=== PATIENT | male | born 1950 | race Caucasian/White ===

== ENCOUNTER 2017-11-24 06:34 | Inpatient (IN) | payer MEDICARE, OTHER, SELFPAY ==
[2017-11-24] VITALS (14 sets, daily range): BP systolic 111–203; BP diastolic 56–150; PULSE 69–80; RESP 10–18; TEMP 36.1–36.7; O2SAT 93–97; BMI 32.3
--- NOTE | 2017-11-24 | DI.RAD.S_ITS ---
PROCEDURE: XR KNEE RT 1TO2V INDICATIONS: POSTOPERATIVE RIGHT KNEE TECHNIQUE: 2 views of the knee were acquired. COMPARISON: None. FINDINGS: Bones: Postoperative changes are present related to a total right knee arthroplasty. The metallic prosthetic components appear to be properly seated. No periprostatic fracture or lucency is evident. Please note that the lateral view is suboptimally positioned. Soft tissues: Areas of soft tissue edema, fluid, and air are seen within the subcutaneous tissues of the right knee. Surgical drainage catheter is present. No unexpected radiopaque foreign bodies are evident. IMPRESSION: Expected postoperative changes related to a total right knee arthroplasty. Dictated by: Kodi Stein M.D. on 11/24/2017 at 10:56 Approved by: Kodi Stein M.D. on 11/24/2017 at 10:57
[2017-11-24] MEDS: LACTATED RINGERS 1,000 ML 42 ML IV ×2 (07:15→12:07)
[2017-11-24] MEDS: VANCOMYCIN 1 GM/200 ML 200 MG IV (07:20)
[2017-11-24] MEDS: SODIUM CHLORIDE 0.9% IV ×2 (08:15→18:11)
[2017-11-24] MEDS: CEFAZOLIN IV ×2 (08:15→18:11)
--- NOTE | 2017-11-24 08:15 | SUR.OPER ---
Supine on padded OR bed. Pillow under head, arms secured on padded armboards <90 degree abduction. Safety belt across torso. Non-operative leg secured with tape over blanket over lower leg. Operative leg secured in DeMayo positioner. Foam padded brace at thigh of operative leg.
[2017-11-24] MEDS: TRANEXAMIC ACID 2,000 MG in SODIUM CHLORIDE 0.9% 100 ML 600 ML IV (09:02)
[2017-11-24] MEDS: BUPIVACAINE LIPOSOME 266 MG/20 ML VIAL SUBCUT (09:09)
[2017-11-24] MEDS: BUPIVACAINE 0.25% W/ EPI 50 ML VIAL INJ (09:10)
--- NOTE | 2017-11-24 11:13 | PM.OP.1 ---
Operative Date/Time/Diagnoses - Date of procedure: 11/24/17 Time of procedure: 08:13 Pre-op diagnosis: right knee oa Post-op diagnosis: same Procedure & Clinicians Procedure: Right total knee Same procedure as scheduled: Yes Indications: The patient has had progressively worsening right knee pain with radiographic changes consistent with arthritis. Non-operative management has failed and the patient has requested total knee replacement. The risks, benefits and alternatives to surgery were discussed with the patient prior to proceeding. Risks discussed included, but were not limited to, failure to relieve pain, stiffness, infection, nerve damage, deep venous thrombosis, pulmonary embolism, stroke, coma, heart attack, permanent paralysis and , as well as the potential need for eventual revision of the prosthetic. Surgeon: Keysha Kan [employer] Consultant: Mattie Kathleen Anesthesia Type: General and Spinal Operative Notes Findings: Severe right knee osteoarthritis, good balance Closure Type: primary Specimen(s): none sent Implants & Drains: Right knee Kan and Nephpricila Morgan BCS2 size 8 femur size 8 tibia 38 oval patella +10 poly Applied: drain(s) and implant(s) Estimated Blood Loss (mL): 200 Blood products transfused: none Tourniquet time (min): 100 Procedure in detail: The patient was seen in the pre-operative area, where the patient identified the right knee as the operative site and this was marked with my initials. The patient received pre-operative antibiotics, and was taken to the operating room and placed on the operative table in the supine position. After satisfactory anesthesia, a aircraft time clerk out was performed. The right leg was encircled with a tourniquet about the proximal thigh, and the leg was prepared from the toes to the tourniquet with ChloroPrep in the usual fashion and draped through sterile drapes. The leg was elevated and exsanguinated with Eschmark bandage and the tourniquet inflated to [250] mmHg pressure. The knee was approached through an approximately 18 cm incision centered over the patella and carried into the knee through a medial parapatellar arthrotomy. The posterior capsule was injected with part of a mixture of 60 ml 0.25% Marcaine mixed with 20 ml Exparel and 4 mg of morphine for post operative pain control. The remainder of this mixture was injected into the capsule and subcutaneous tissues during cement curing. The patella was then cut to accommodate the patellar prosthetic. There was no need for a lateral release. The anterior osteophytes and soft tissues were removed. The rotational landmarks of Maverick's line and the transepicondylar axis were marked on the femur with electrocautery, and intramedullary guide holes for the femur and tibia were created. The distal femoral cut was made in 5 degrees of valgus using the intramedullary guide at the +2 cut setting. The proximal tibial cut was then made using the extramedullary guide, taking 10 mm of bone off the less involved side. The extension gap was checked and the rotation of the femoral component confirmed with the gap balancing system. The anterior, posterior and chamfer cuts were then made. The posterior osteophytes and soft tissues were then removed. The posterior capsule was injected with part of a mixture of 60 ml 0.25% Marcaine mixed with 20 ml Exparel and 4 mg of morphine for post operative pain control. The remainder of this mixture was injected into the capsule and subcutaneous tissues during cement curing. The tibia was prepared with the rotation set by an extra medullary guide. Trial tibial and femoral components were then placed and the knee placed through a range of motion. Range of motion was [0-130], with good stability throughout the range. The trials were then removed, and the femoral hole plugged with a bone plug. The bone was prepared with pulsatile lavage, and dried with a sponge. Cement was applied and the final prosthetics placed. Excess cement was removed during and after cement curing. After confirming there was no extruded cement posteriorly, the final tibial insert was placed. The knee was copiously irrigated and the tourniquet deflated. Hemostasis was obtained with the Aquamantys system. A drain was placed and brought out superolaterally. The capsule was closed with interrupted # 2 Black braided nylon. The subcutaneous layer was closed with a barbed suture and the skin with a running 3-0 V-Lock suture and SteriStrips. An Aquacel Ag dressing was applied and the patient was taken to recovery having tolerated the procedure well. Complications: none Condition: stable Disposition: observation Plan for aftercare: The patient will be maintained on a standard total knee replacement protocol with weight bearing as tolerated. The patient will receive aspirin and sequential compression devices for DVT prophylaxis. The patient will be discharged home when safe for the home environment.
--- NOTE | 2017-11-24 12:22 | PC.NURSE ---
Pt to room at 1150 alert, oriented, denies pain but reports some tingling. PPP+ scds' on. Denies nausea. Oriented to room and call light.
[2017-11-24] MEDS: LACTATED RINGERS 1,000 ML 125 ML IV ×2 (13:34→21:56)
[2017-11-24] MEDS: ACETAMINOPHEN 325 MG TABLET 650 MG PO ×2 (13:37→18:09)
--- NOTE | 2017-11-24 17:36 | PT.IIE ---
Physical Therapy Inpatient M1 PT/OT-IP Prior Functional Status Start: 11/24/17 17:13 Freq: NEEDED Status: Active Protocol: Document 11/24/17 17:14 EA (Rec: 11/24/17 17:35 EA [id number]) Medical Review Prior Functional Status Medical History Reviewed Yes Communication Alert, O x 3 Mobility and Gait Indep in all functional transfers and mobility; uses standard cane for outdoor mobility w/ no history of fall in the past six months. Activities of Daily Living and IADL's Independent Social History Household Members spouse Living Arrangements House Number of Floors (Floors) One Floor Number of Stairs To Enter/Railing? 4 steps to get in w/ Left handrail to go up Home Environment High Toilet Home Equipment Front Wheel Walker Straight Cane Employment Status Unknown Additional Social History Comment Daughter to come home for few days once d/c. M2 PT-IP Current Condition Start: 11/24/17 17:13 Freq: NEEDED Status: Active Protocol: Document 11/24/17 17:14 EA (Rec: 11/24/17 17:35 EA [id number]) Physical Therapy Current Condition Current Condition Evaluation Date 11/24/17 Treatment Diagnosis R TKR Onset Date Post Operative Precautions Other Precautions Pre-caution when turning to the bad side while walking. Weight Bearing Status Weight Bearing Status Weight Bear as Tolerated M3 PT-IP Subjective Start: 11/24/17 17:13 Freq: NEEDED Status: Active Protocol: Document 11/24/17 17:14 EA (Rec: 11/24/17 17:35 EA [id number]) Subjective Physical Therapy Visit Type Type Initial Evaluation Visit Start Time 16:35 Visit Stop Time 17:10 Total Visit Minutes 35 Physical Therapy Visit Comments Patient/Caregiver Goals Wants to be indep in all transfers and mobility upon discharge. Therapy Pain Assessment Pain When Pain Assessed At Rest Pain Present Pain Present Pain Reported Location Right Foot Intensity 2 Description Pressure Pain Management Techniques Apply Cold M4 PT-IP Mobility and Gait Start: 11/24/17 17:13 Freq: NEEDED Status: Active Protocol: Document 11/24/17 17:14 EA (Rec: 11/24/17 17:35 EA [id number]) PT-Bed Mobility Assessment Rolling Level of Assist Standby Assistance Supine to Sit Supine to Sit Standby Assistance Sit to Supine Sit to Supine Standby Assistance Scooting Scooting to Edge of Bed Standby Assistance PT-Transfer Assessment Sit to and From Stand Sit to and from Stand Standby Assistance Equipment Transfer Assistive Device Gait Belt Front Wheeled Walker Transfers Transfer Destination Chair Transfer Technique stepping transfers Transfer Ability Level of Assist Standby Assistance Gait Assessment Gait Gait Assistance Required: Standby Assistance Able to Maintain Weight Bearing Status Yes During Gait Assistive Devices Assistive Device Gait Belt Front Wheeled Walker Gait Deviations General Gait Pattern Antalgic Factors Limiting Gait Function Factors Limiting Gait Function Decreased Strength Pain Stair Climbing Assessment Comments Stair Climbing Comments N/A at this time PT-Balance Assessment Sitting Balance and Reactions Static Sitting Balance Ability Normal Dynamic Sitting Balance Ability Good Standing Balance and Reactions Static Standing Balance Ability Good Dynamic Standing Balance Ability Fair M5 PT-IP Objective Assessments Start: 11/24/17 17:13 Freq: NEEDED Status: Active Protocol: Document 11/24/17 17:14 EA (Rec: 11/24/17 17:35 EA [id number]) Orientation Orientation/Cognition Level of Alertness Alert Orientation Name Date Year Place Gross Range of Motion Upper Extremity ROM Assessment Within Functional Limits Lower Extremity ROM Assessment Within Functional Limits Impairments Right knee not proper tested due to pre-cautions but with at least 0-90 deg flexion Strength Upper Extremity Strength Assessment Within Functional Limits Lower Extremity Strength Assessment Within Functional Limits Hip hip flexors 4-/5 with pain Knee 3/5: not properly assessed Coordination Assessment Gross Coordination Gross Coordination WNL Sensation Assessment Sensation Gross Sensation WNL Light Touch Intact Proprioception (Position) Intact M6 PT-IP Treatment Start: 11/24/17 17:13 Freq: NEEDED Status: Active Protocol: Document 11/24/17 17:14 EA (Rec: 11/24/17 17:35 EA [id number]) Physical Therapy Treatment Exercises Exercises Ankle Pumps Quad Sets Straight Leg Raises Short Arc Quads Passive Knee Extension Hang Seated Knee Flexion/Extension Education Post-Op Education Precautions Weight Bearing Status Post-Op Packet Safety M7 PT-IP Assessment and Plan Start: 11/24/17 17:13 Freq: NEEDED Status: Active Protocol: Document 11/24/17 17:14 EA (Rec: 11/24/17 17:35 EA [id number]) PT Summary Assessment and Plan Potential Rehabilitation Potential Excellent Status of Condition at Evaluation Stable Summary Impairments Pain Strength Balance Transfers Gait Activity Tolerance Goals Bed Mobility Goal Independent Transfer Goal Independent Gait Goal Independent Gait Distance 50 ft w/ FWW on level surfaces Frequency of Treatment Frequency Of Treatment Twice a Day Treatment Plan Physical Therapy Treatment Plan Bed Mobility Training Transfer Training Gait Training Therapeutic Exercise Discharge Planning Recommendations To Nursing Amount of Assist Needed 1 Person Assist Discharge Recommendations PT Discharge Recommendations Home with Assistance Outpatient PT
[2017-11-24] MEDS: DOCUSATE 100 MG CAPSULE PO (20:26)
[2017-11-24] MEDS: ASPIRIN EC 81 MG TABLET PO (20:26)
[2017-11-24] MEDS: SENNOSIDES 8.6 MG TABLET 17.2 MG PO (20:26)
--- NOTE | 2017-11-24 22:33 | PC.NURSE ---
Pt A&Ox3, essential tremor present at baseline. Harshil wrap CDI, hemavac compressed, draining sanguineous drainage. Denies nausea, +Bt's. Pt having troubles with urination. Bladder scanned pt with >992 cc present in urine. In and Out cath placed approx at 2044 with 1050 cc of clear juventino urine. Pt tolerated well and expressed immediate pressure relief. States pain tolerable in his R knee, denies need for PRN pain meds, stating I only have pain when I move.
[2017-11-25] MEDS: ACETAMINOPHEN 325 MG TABLET 650 MG PO ×4 (01:27→18:30)
[2017-11-25 05:22] LABS: Hematocrit 42.6 % (41-53); Hemoglobin 14.8 g/dL (13.5-17.5)
[2017-11-25] MEDS: SODIUM CHLORIDE 0.9% IV (05:35)
[2017-11-25] MEDS: CEFAZOLIN IV (05:35)
[2017-11-25] MEDS: PANTOPRAZOLE 20 MG TABLET PO (05:36)
[2017-11-25 05:47] VITALS: BP 141/82; PULSE 70; RESP 16; TEMP 36.6; O2SAT 93
[2017-11-25] MEDS: OXYCODONE IR 10 MG TABLET PO ×5 (06:43→20:30)
[2017-11-25 08:18] VITALS: BP 148/85; PULSE 70; RESP 13; TEMP 36.7; O2SAT 95
[2017-11-25] MEDS: ASPIRIN EC 81 MG TABLET PO ×2 (09:16→20:30)
[2017-11-25] MEDS: DOCUSATE 100 MG CAPSULE PO ×2 (09:16→20:31)
--- NOTE | 2017-11-25 10:55 | P.PN_ITS ---
Subjective Interval history: POD #1 status post right total knee arthroplasty with Dr. Kan. His pain is well controlled. He has not ambulated with PT this morning. He had a in his family this past week. His care plan has changed as his daughter will no longer be able to stay with him until . His will be able to care for him tomorrow afternoon. Patient is urinating on his own. Date Patient Seen: 11/25/17 Time Patient Seen: 10:45 Exam Vital Signs (past 8 hours): Vital Signs - 8 hr 3 11/25/17 05:47 11/25/17 08:18 Temperature 97.8 F 98.1 F Pulse Rate 70 70 Respiratory Rate 16 13 Blood Pressure 141/82 H 148/85 H Pulse Oximetry 93 95 Temperature 98.1 F Temperature 97.8 F Pulse Rate 70 Pulse Rate 70 Respiratory Rate 13 Respiratory Rate 16 Blood Pressure 148/85 Blood Pressure 141/82 Pulse Oximetry 95 Pulse Oximetry 93 Narrative Exam Narrative: Patient lying in bed in no acute distress. Alert and oriented x3. Dressing on right knee is CDI. Harshil wrap in place. Drain in place. He is able to actively dorsiflex and plantar flex. Sensation intact to light touch throughout bilateral lower extremities. Objective Labs Result Diagrams: 11/25/17 04:58 Labs: Laboratory Results - last 24 hr 11/25/17 04:58 Hgb 14.8 Hct 42.6 Assessment & Plan Post-op (1) S/P total knee arthroplasty: Current Visit: Yes Status: Acute Postoperative Procedures Operation Date: 11/24/17 07:45 Actual Procedures Side Surgeon p Total Knee Arthroplasty Right Keysha Kan MD Postop day 1 s/p right total knee arthroplasty with Dr. Kan. Continue current pain control. ASA for VTE prophylaxis. Will ambulate with PT today. He will discuss with plan for discharge. Possible DC home tomorrow as long as mobilizing safely and pain is well controlled. He will discuss with about care tomorrow after her work and daughter will be able to stay with him all day. Postoperative day: 1 Time Spent With Patient less than 15 minutes Quality VTE Deep Vein Thrombosis/Pulmonary Embolism Present on Admission: No
--- NOTE | 2017-11-25 12:21 | PT.IPTN ---
Current Diagnoses Unilateral primary osteoarthritis, right knee (11/24/17) Presence of unspecified artificial knee joint (11/24/17) Surgery Performed Operation Date: 11/24/17 07:45 Actual Procedures p Total Knee Arthroplasty(Right) - Keysha Kan MD Physical Therapy Treatment Note M3 PT-IP Subjective Start: 11/24/17 17:13 Freq: NEEDED Status: Active Protocol: Document 11/25/17 12:11 AB (Rec: 11/25/17 12:19 AB [id number]) Subjective Physical Therapy Visit Type Type Treatment Note Visit Start Time 09:22 Visit Stop Time 10:55 Total Visit Minutes 33 Number of CONTINUOUS MINING MACHINE COAL MINER Visits 0 Physical Therapy Visit Comments Patient Comments pt agreeable to do therapy Therapy Pain Assessment Pain When Pain Assessed During Mobility Pain Present Pain Present Pain Reported Location Right Knee Intensity 7 Scale Used Numeric (1 - 10) Pain Management Techniques Apply Cold Timing of Activity with Medications M4 PT-IP Mobility and Gait Start: 11/24/17 17:13 Freq: NEEDED Status: Active Protocol: Document 11/25/17 12:11 AB (Rec: 11/25/17 12:19 AB [id number]) PT-Bed Mobility Assessment Supine to Sit Supine to Sit Standby Assistance PT-Transfer Assessment Sit to and From Stand Sit to and from Stand Minimal Assistance Equipment Transfer Assistive Device Gait Belt Front Wheeled Walker Gait Assessment Gait Gait Assistance Required: Contact Guard Assist Distance (Feet) (feet) 120 Able to Maintain Weight Bearing Status Yes During Gait Assistive Devices Assistive Device Gait Belt Front Wheeled Walker Orthotic/Prosthetic Devices or Brace: No Gait Deviations General Gait Pattern Antalgic Factors Limiting Gait Function Factors Limiting Gait Function Decreased Activity Tolerance Decreased Strength Limited Range of Motion Pain Poor Balance
[2017-11-25 13:31] VITALS: BP 138/87; PULSE 72; RESP 13; TEMP 36.9; O2SAT 97
[2017-11-25 15:40] VITALS: BP 146/90; PULSE 77; RESP 18; TEMP 37.2; O2SAT 96
[2017-11-25] MEDS: hydrOXYzine pamoate 25 MG CAPSULE PO (17:12)
--- NOTE | 2017-11-25 17:17 | PT.IPTN ---
Current Diagnoses Unilateral primary osteoarthritis, right knee (11/24/17) Presence of unspecified artificial knee joint (11/24/17) Surgery Performed Operation Date: 11/24/17 07:45 Actual Procedures p Total Knee Arthroplasty(Right) - Keysha Kan MD Physical Therapy Treatment Note M3 PT-IP Subjective Start: 11/24/17 17:13 Freq: NEEDED Status: Active Protocol: Document 11/25/17 17:16 AB (Rec: 11/25/17 17:17 AB [id number]) Subjective Physical Therapy Visit Type Type Patient Refusal Notes checked on pt and pt refused therapy stated that he has 8/ 10 and does not think it's a good idea to push it. pt just had his pain meds ~ 2 hours hour. unable to checked back on pt due to schedule conflict . will f/u tomorrow.
[2017-11-25] MEDS: SENNOSIDES 8.6 MG TABLET 17.2 MG PO (20:31)
[2017-11-25 20:49] VITALS: BP 137/95; PULSE 87; RESP 18; TEMP 37.2; O2SAT 92
[2017-11-25 23:35] VITALS: BP 143/95; PULSE 77; RESP 16; TEMP 37.4; O2SAT 96
[2017-11-26] MEDS: OXYCODONE IR 10 MG TABLET PO ×3 (00:03→10:17)
[2017-11-26] MEDS: ACETAMINOPHEN 325 MG TABLET 650 MG PO ×3 (00:03→12:11)
[2017-11-26] MEDS: hydrOXYzine pamoate 25 MG CAPSULE PO (00:04)
[2017-11-26 05:19] VITALS: BP 140/81; PULSE 74; RESP 16; TEMP 37.1; O2SAT 93
[2017-11-26] MEDS: PANTOPRAZOLE 20 MG TABLET PO (06:26)
[2017-11-26 07:12] VITALS: BP 141/91; PULSE 74; RESP 14; TEMP 37.3; O2SAT 94
[2017-11-26] MEDS: DOCUSATE 100 MG CAPSULE PO (08:05)
[2017-11-26] MEDS: ASPIRIN EC 81 MG TABLET PO (08:05)
--- NOTE | 2017-11-26 10:06 | CM.DANOTE ---
DCP: case received, EMR reviewed, spoke with PT and ANTHONY Fall and met with pt. DCP: template: completed with info available at this time. Pt is a 67 year old male who admitted 11/24 for a planned R TKA. Surgeon: Dr. Kan Payer: FRANTZ/Tasha. Pt notes that he felt good yesterday but lots of pain after PT session. Noted Bilateral UE tremors: per ANTHONY Fall this is baseline. She also says pt needed Vistaril last night and is a bit groggy/foggy this morning. Pt confirms his plan for home with outpt PT. Has his FWW in prep for this surgery. His 2 daughters are now in town and will be staying at his home to assist him. His , who works, will also be assisting. Pt indicated he thought if he did not go today it would cost me alot of money. Explained his [facility] coverage. He has not yet seen ortho team today and PT will be working again with him. Will follow prn. P: home when stable, family, outpt PT
[2017-11-26] MEDS: NAPROXEN 250 MG TABLET PO (10:49)
--- NOTE | 2017-11-26 10:52 | PC.NURSE ---
PT RATING RIGHT KNEE PAIN 8/10, THROBBING. GIVEN 10MG OXYCODONE AND 250MG NAPROSYN. REMOVED BANDAR WRAP AND APPLIED FRESH ICE PACKS.
--- NOTE | 2017-11-26 11:10 | CM.DPNOTE ---
Medicare Message SW provided Medicare rights and pt acknowledged understanding and and gave verbal signature on the Medicare Message due to pain issues on 11/26/17 at 1042. CAR Harding
[2017-11-26] MEDS: KETOROLAC 15 MG/ML VIAL IM (12:10)
--- NOTE | 2017-11-26 13:06 | PT.IPTN ---
Current Diagnoses Unilateral primary osteoarthritis, right knee (11/24/17) Presence of unspecified artificial knee joint (11/24/17) Surgery Performed Operation Date: 11/24/17 07:45 Actual Procedures p Total Knee Arthroplasty(Right) - Keysha Kan MD Physical Therapy Treatment Note M2 PT-IP Current Condition Start: 11/24/17 17:13 Freq: NEEDED Status: Active Protocol: Document 11/24/17 17:14 EA (Rec: 11/24/17 17:35 EA [id number]) Physical Therapy Current Condition Current Condition Evaluation Date 11/24/17 Treatment Diagnosis R TKR Onset Date Post Operative Precautions Other Precautions Pre-caution when turning to the bad side while walking. Weight Bearing Status Weight Bearing Status Weight Bear as Tolerated M3 PT-IP Subjective Start: 11/24/17 17:13 Freq: NEEDED Status: Active Protocol: Document 11/26/17 10:04 CLB (Rec: 11/26/17 13:06 CLB [id number]) Subjective Physical Therapy Visit Type Type Patient Refusal Notes Pt refused, stating pain was 9 /10 and was asking RN for pain meds. M4 PT-IP Mobility and Gait Start: 11/24/17 17:13 Freq: NEEDED Status: Active Protocol: Document 11/25/17 12:11 AB (Rec: 11/25/17 12:19 AB [id number]) PT-Bed Mobility Assessment Supine to Sit Supine to Sit Standby Assistance PT-Transfer Assessment Sit to and From Stand Sit to and from Stand Minimal Assistance Equipment Transfer Assistive Device Gait Belt Front Wheeled Walker Gait Assessment Gait Gait Assistance Required: Contact Guard Assist Distance (Feet) (feet) 120 Able to Maintain Weight Bearing Status Yes During Gait Assistive Devices Assistive Device Gait Belt Front Wheeled Walker Orthotic/Prosthetic Devices or Brace: No Gait Deviations General Gait Pattern Antalgic Factors Limiting Gait Function Factors Limiting Gait Function Decreased Activity Tolerance Decreased Strength Limited Range of Motion Pain Poor Balance M5 PT-IP Objective Assessments Start: 11/24/17 17:13 Freq: NEEDED Status: Active Protocol: Document 11/24/17 17:14 EA (Rec: 11/24/17 17:35 EA [id number]) Orientation Orientation/Cognition Level of Alertness Alert Orientation Name Date Year Place Gross Range of Motion Upper Extremity ROM Assessment Within Functional Limits Lower Extremity ROM Assessment Within Functional Limits Impairments Right knee not proper tested due to pre-cautions but with at least 0-90 deg flexion Strength Upper Extremity Strength Assessment Within Functional Limits Lower Extremity Strength Assessment Within Functional Limits Hip hip flexors 4-/5 with pain Knee 3/5: not properly assessed Coordination Assessment Gross Coordination Gross Coordination WNL Sensation Assessment Sensation Gross Sensation WNL Light Touch Intact Proprioception (Position) Intact M6 PT-IP Treatment Start: 11/24/17 17:13 Freq: NEEDED Status: Active Protocol: Document 11/25/17 12:11 AB (Rec: 11/25/17 12:19 AB [id number]) Physical Therapy Treatment Exercises Exercises Quad Sets Education Post-Op Education Weight Bearing Status Safety M7 PT-IP Assessment and Plan Start: 11/24/17 17:13 Freq: NEEDED Status: Active Protocol: Document 11/25/17 12:11 AB (Rec: 11/25/17 12:19 AB [id number]) PT Summary Assessment and Plan Potential Rehabilitation Potential Good Summary Impairments Pain ROM Strength Balance Bed Mobility Transfers Gait Activity Tolerance Progress Towards Goals Progressing Toward Goals Assessment Summary pt requiring one person assist with mobility. pt plans to go home with spouse but stated that his mother in law just passed and his spouse is the executor and will not be able to assist him. Stair climbing will be completed prior to d/ c. pt may require homehealth PT. Goals Bed Mobility Goal Independent Transfer Goal Independent Gait Goal Independent Gait Distance 50 ft w/ FWW on level surfaces Frequency of Treatment Frequency Of Treatment Twice a Day Treatment Plan Physical Therapy Treatment Plan Bed Mobility Training Transfer Training Gait Training Therapeutic Exercise Discharge Planning Recommendations To Nursing Amount of Assist Needed 1 Person Assist Discharge Recommendations PT Discharge Recommendations Home with Assistance Home Health Other Discharge Recommendations HHPT vs out pt depending on assistance at home.
[2017-11-26 13:32] VITALS: BP 139/87; PULSE 77; RESP 14; TEMP 36.6; O2SAT 96
--- NOTE | 2017-11-26 13:56 | P.DS_ITS ---
History of Present Illness Chief complaint: [place] [id number] Narrative: Calixto Kan is a 67 year old male status post total knee arthroplasty with Dr. Kan. Hospital course was unremarkable. Wrist on postop day 2. His feeling well want go home. He was afebrile and vital signs are stable. He is eating and voiding without difficulty or assistance. He was evaluated by PT through his stay. On day of discharge right knee dressing with CDI, and calves were soft, compressible, and nontender bilaterally. All drains and catheters removed prior to discharge. Discharge Providers Date of admission: 11/24/17 06:34 Primary care physician: Ramiro Saldana MD Consults: 11/24/17 12:29 Consult to Discharge Planning Routine Comment: Consult to Physical Therapy Evaluate & Treat Comment: Physician Instructions: oob today, wbat Consult to Respiratory Therapy Evaluate & Treat Comment: Physician Instructions: Evaluate and treat Discharge provider: Shama Gamez PA-C Summary Hospital Course: Discharge diagnosis: Status post right total knee arthroplasty Discharge Diagnosis (1) S/P total knee arthroplasty: Status: Acute Status at Discharge Functional status at discharge: uses cane/walker Time Spent with Patient Total time spent providing and/or coordinating discharge services: Less than 30 minutes Exam Vital Signs (past 8 hours): Vital Signs - 8 hr 3 11/26/17 07:12 Temperature 99.2 F Pulse Rate 74 Respiratory Rate 14 Blood Pressure 141/91 H Pulse Oximetry 94 Pulse Oximetry 94 Oxygen Delivery Method Room Air Oxygen Flow Rate 0 Narrative Exam Narrative: Patient is sitting in bedside chair in no acute distress. He is alert and oriented x3. His dressing on right knee is CDI. Calves are soft, compressible, and nontender bilaterally. Sensation intact to light touch throughout bilateral lower extremities. He is able to actively dorsiflex and plantar flex. His pain is well controlled. He has been up ambulating with PT. He needs to do stair training. Denies any nausea or vomiting. Objective Labs Result Diagrams: 11/25/17 04:58 Discharge Plan Discharge Plan Patient Disposition: Home, Self-Care Discharge comment: DC home Discharge Med Rec/Prescriptions Prescriptions: New oxycodone 10 mg Tablet 10 mg PO Q3HR PRN (Reason: Moderate Pain) Qty: 30 RF: 0 Continue naproxen sodium [Aleve] 220 mg Capsule 220 mg PO Q8-12H PRN (Reason: Pain) RF: 0 Prilosec tablet 20 mg PO QDAY RF: 0 hydroxyzine pamoate [Vistaril] 25 mg capsule 25 mg PO Q4HR PRN (Reason: Itching) RF: 0 Changed aspirin [Aspir-81] 81 mg Tablet,Delayed Release (Dr/Ec) 81 mg PO BID Qty: 60 RF: 0 Follow up/Referrals: Keysha Kan MD [Physician] - (Follow-up in 5-7 days) Provider Discharge Instructions Diet: Diet as Tolerated Activity: Activity as tolerated Cold/Heat Therapy: Apply ice as needed for comfort Wound Care Report to your healthcare provider any signs of infection, such as:: chills, fever, night sweats, increased pain and unusual drainage Dressing: Keep dressing clean, dry, and intact Visit Report/Discharge Packet Instructions: DI for Knee Replacement Stand Alone Forms: Surgery Discharge Discharge Data Primary Care Provider: Ramiro Saldana Attending Provider: Keysha Kan Admit Date/Time: 11/24/17 06:34 Quality VTE Deep Vein Thrombosis/Pulmonary Embolism Present on Admission: No
--- NOTE | 2017-11-26 16:37 | PT.IPTN ---
Current Diagnoses Unilateral primary osteoarthritis, right knee (11/24/17) Presence of unspecified artificial knee joint (11/24/17) Surgery Performed Operation Date: 11/24/17 07:45 Actual Procedures p Total Knee Arthroplasty(Right) - Keysha Kan MD Physical Therapy Treatment Note M2 PT-IP Current Condition Start: 11/24/17 17:13 Freq: NEEDED Status: Discharge Protocol: Document 11/24/17 17:14 EA (Rec: 11/24/17 17:35 EA [id number]) Physical Therapy Current Condition Current Condition Evaluation Date 11/24/17 Treatment Diagnosis R TKR Onset Date Post Operative Precautions Other Precautions Pre-caution when turning to the bad side while walking. Weight Bearing Status Weight Bearing Status Weight Bear as Tolerated M3 PT-IP Subjective Start: 11/24/17 17:13 Freq: NEEDED Status: Discharge Protocol: Document 11/26/17 14:10 CLB (Rec: 11/26/17 16:36 CLB [email or web address]) Subjective Physical Therapy Visit Type Type Treatment Note Visit Start Time 14:10 Visit Stop Time 14:35 Total Visit Minutes 25 Number of DIRECTOR [employer]SELING [employer] Visits 1 Physical Therapy Visit Comments Patient Comments Pt agreeable to do therapy. M4 PT-IP Mobility and Gait Start: 11/24/17 17:13 Freq: NEEDED Status: Discharge Protocol: Document 11/26/17 14:10 CLB (Rec: 11/26/17 16:36 CLB [email or web address]) PT-Transfer Assessment Sit to and From Stand Sit to and from Stand Standby Assistance Transfers Transfer Destination Chair Transfer Technique Stand Step Pivot Transfer Ability Level of Assist Contact Guard Assistance Comments Mobility Comments Pt moves slowly but safely. Gait Assessment Gait Gait Assistance Required: Contact Guard Assist Distance (Feet) (feet) 120 Able to Maintain Weight Bearing Status Yes During Gait Assistive Devices Assistive Device Gait Belt Front Wheeled Walker Orthotic/Prosthetic Devices or Brace: No Gait Deviations General Gait Pattern Antalgic Stair Climbing Assessment Evaluation Level of Assist On Stairs Contact Guard Assistance Devices Stair Climbing Assistive Devices Left Railing Right Railing Technique/Endurance Stair Climbing Technique Step to Step Number of Steps Climbed 3 Query Text: Stair Climbing Set # Repetitions (reps) 2 Comments Stair Climbing Comments Pt successfully performed stair training. M5 PT-IP Objective Assessments Start: 11/24/17 17:13 Freq: NEEDED Status: Discharge Protocol: Document 11/24/17 17:14 EA (Rec: 11/24/17 17:35 EA [id number]) Orientation Orientation/Cognition Level of Alertness Alert Orientation Name Date Year Place Gross Range of Motion Upper Extremity ROM Assessment Within Functional Limits Lower Extremity ROM Assessment Within Functional Limits Impairments Right knee not proper tested due to pre-cautions but with at least 0-90 deg flexion Strength Upper Extremity Strength Assessment Within Functional Limits Lower Extremity Strength Assessment Within Functional Limits Hip hip flexors 4-/5 with pain Knee 3/5: not properly assessed Coordination Assessment Gross Coordination Gross Coordination WNL Sensation Assessment Sensation Gross Sensation WNL Light Touch Intact Proprioception (Position) Intact M6 PT-IP Treatment Start: 11/24/17 17:13 Freq: NEEDED Status: Discharge Protocol: Document 11/26/17 14:10 CLB (Rec: 11/26/17 16:36 CLB [email or web address]) Physical Therapy Treatment Exercises Exercises Quad Sets Heel Slides Straight Leg Raises Short Arc Quads M7 PT-IP Assessment and Plan Start: 11/24/17 17:13 Freq: NEEDED Status: Discharge Protocol: Document 11/26/17 14:10 CLB (Rec: 11/26/17 16:36 CLB [email or web address]) PT Summary Assessment and Plan Summary Assessment Summary Pt requiring less assist with sit-stand and has good pain control this afternoon. Goals Bed Mobility Goal Independent Transfer Goal Independent Gait Goal Independent Gait Distance 50 ft w/ FWW on level surfaces Frequency of Treatment Frequency Of Treatment Twice a Day Recommendations To Nursing Amount of Assist Needed 1 Person Assist Discharge Recommendations PT Discharge Recommendations Home with Assistance Home Health Other Discharge Recommendations Home with assist.
--- NOTE | 2017-11-28 15:39 | CM.DANOTE ---
D/c note 11/28; pt discharged to home 11/26: Patient was discharged to home on 11/26; no nursing note to this effect, so uncertain of time of d/c. Per prev DCP notes, patient was to d/c with no services, and to f/u with outpatient therapy. Suzan Valverde RN
== END 2017-11-26 16:00 | disposition home or self-care (01) | DRG 470 ==
PROVIDERS: Admitting Provider Orthopaedic Surgery; Family Provider Family Medicine; PCP Family Medicine; Visit Provider Orthopaedic Surgery
PROC: 0SRC0JZ Replacement of Right Knee Joint with Synthetic Substitute, Open Approach (ICD-10-PCS; CPT 27447; principal; 2017-11-24 07:45)
DX: M17.11 Unilateral primary osteoarthritis, right knee (principal); I10 Essential (primary) hypertension; I49.3 Ventricular premature depolarization
CPT/HCPCS: 36415; 73560; 85014; 85018; 97110; 97116; 97161; 97530; C1776; C9290; J0690; J1100; J1885; J2250; J2274; J2405; J2704; J3010; J3370

== ENCOUNTER 2019-03-12 11:58 | Day surgery (SDC) | payer MEDICARE, OTHER, SELFPAY ==
[2017-11-24 12:11] VITALS: BMI 32.3
[2019-03-12 12:20] VITALS: BP 137/86; PULSE 73; RESP 15; TEMP 36.8; O2SAT 98; BMI 32.9
[2019-03-12 12:27] VITALS: BMI 32.9
[2019-03-12] MEDS: SODIUM CHLORIDE 0.9% 1,000 ML 200 ML IV (12:32)
[2019-03-12] MEDS: HYOSCYAMINE 0.125 MG TABLET PO (12:34)
--- NOTE | 2019-03-12 13:02 | PM.OP.ENDO ---
Operative Date/Time/Diagnoses Date of procedure: 03/12/19 Time of procedure: 13:02 Pre-op diagnosis: 1. Screening for colon cancer Post-op diagnosis: other (1. Normal colonoscopy, 2. Moderate diverticulosis) Procedure & Clinicians Study performed: 1. Colonoscopy Same procedure as scheduled: Yes Indications: 1. Screening for colon cancer Surgeon: Poornima Marquez Procedure Notes SCOAP/Timeout: 13:02 Procedure in detail: ENDOSCOPIST: Poornima Marquez MD SEDATION RN: Francie Hernandez RN PROCEDURE: Colonoscopy INDICATIONS: 1. Screening for colon cancer MEDICATION: Levsin 0.125 mg sublingual, incremental doses of Versed and fentanyl until appropriate level sedation achieved. ASA CLASS: 1 CECAL WITHDRAWAL TIME: 12 minutes COMPLICATIONS: None. EXTENT OF PROCEDURE: Cecum. QUALITY OF PREP: Good with portions of liquid stool. PROCEDURE: Prior to insertion of the colonoscope, a digital rectal examination was accomplished with circumferential palpation of the distal rectal mucosa without significant findings being noted. The high-definition colonoscope was passed into the rectum in the usual fashion and advanced over to the cecum without difficulty. The ileocecal valve, appendiceal stoma, and medial wall all could be inspected and no abnormalities were seen. ASCENDING COLON: As the colonoscope was withdrawn, care was taken to expose and inspect the haustral folds and no abnormalities were seen. HEPATIC FLEXURE: Normal no polyps, diverticula or other abnormalities. TRANSVERSE COLON: Moderate diverticulosis, otherwise normal, no polyps or other abnormalities. DESCENDING COLON: Moderate diverticulosis, otherwise normal, no polyps or other abnormalities. SIGMOID COLON: Moderate diverticulosis, otherwise normal, no polyps or other abnormalities. RECTUM: Normal. J maneuver was produced. There was no significant perianal disease. The J maneuver was broken. The remainder of the rectum was inspected and there was no external hemorrhoid disease. The scope was withdrawn. IMPRESSION: 1. Normal colonoscopy 2. Moderate diverticulosis, noninflamed PLAN: 1. Repeat colonoscopy in 10 years The possibility of a missed lesion including a malignancy has been discussed with the patient previously. Potential alarm symptoms have been discussed and should be reported immediately. Scope withdrawal time: 12 minutes Sedation minutes: 28 Findings: diverticulosis Specimen(s): none sent Complications: none Impression: 1. Normal colonoscopy 2. Moderate diverticulosis Recommendations: Colonscopy in 10 years Follow up: as needed Disposition: PACU
[2019-03-12] MEDS: MIDAZOLAM 5 MG/5 ML VIAL IV (13:24)
[2019-03-12] MEDS: fentaNYL 250 MCG/5 ML INJ IV (13:25)
[2019-03-12 13:37] VITALS: BP 143/100; PULSE 67; RESP 12; TEMP 36.1; O2SAT 94
[2019-03-12 13:41] VITALS: BP 152/104; PULSE 71; RESP 13; O2SAT 96
[2019-03-12 13:47] VITALS: BP 158/98; PULSE 70; RESP 14; O2SAT 95
--- NOTE | 2019-03-12 13:50 | SUR.PHASEII ---
Dr. Marquez notified bp 152/104, at bedside. Pt reported missing his hydrochlorothiazide dose today. Med ordered. Will observe pt x 30min per MD.
[2019-03-12] MEDS: hydroCHLOROthiazide 25 MG TABLET PO (14:03)
[2019-03-12 14:10] VITALS: BP 132/86; PULSE 63; RESP 12; TEMP 36.4; O2SAT 97
[2019-03-12 14:22] VITALS: BP 118/79; PULSE 61; O2SAT 95
== END 2019-03-12 14:38 | disposition home or self-care (01) ==
PROVIDERS: PCP Student in an Organized Health Care Education/Training Program; Visit Provider Student in an Organized Health Care Education/Training Program
PROC: 0DJD8ZZ Inspection of Lower Intestinal Tract, Via Natural or Artificial Opening Endoscopic (ICD-10-PCS; CPT 45378; principal; 2019-03-12 13:00)
DX: Z12.11 Encounter for screening for malignant neoplasm of colon (principal); K57.30 Diverticulosis of large intestine without perforation or abscess without bleeding; K21.9 Gastro-esophageal reflux disease without esophagitis; E78.5 Hyperlipidemia, unspecified; I10 Essential (primary) hypertension; E66.9 Obesity, unspecified; Z68.34 Body mass index [BMI] 34.0-34.9, adult
CPT/HCPCS: G0121; J2250; J3010

== ENCOUNTER → 2019-04-09 13:08 | Outpatient (CLI) | payer MEDICARE, OTHER, SELFPAY ==
[2017-11-24 12:11] VITALS: BMI 32.3
--- NOTE | 2019-04-09 | DI.MRI.S_ITS ---
PROCEDURE: MR LUMBAR SPINE WO CON INDICATIONS: Low back pain TECHNIQUE: Noncontrast sagittal T1 spin echo and T2 fast echo, sagittal STIR, axial T1 and T2 fast spin echo through the lumbar spine. In cases with scoliosis, additional coronal T2 fast spin echo may be performed. COMPARISON: [facility], CR, XR LUMBAR SPINE WITH OLBIQUES PLUS FLEXION EXTENSION, 03/29/2019, 9:58. [facility], , L-SPINE WITHOUT CONTRAST, 01/01/2017, 19:25. FINDINGS: Image quality: Excellent. Alignment and Curvature: There is normal bony alignment. Bone Marrow: Marrow is of normal overall signal. No acute vertebral body compression fractures. Spinal Cord: Conus medullaris terminates at the L1 level. Visualized cord demonstrates normal signal and size. Paraspinous Soft Tissues: No paravertebral masses. L1-L2: Mild to moderate degenerative disc disease with mild interval progression of disc height reduction with reference to the study from December of 2016. No worsening of facet osteoarthritis is found and no significant spinal or foraminal stenosis is seen.. L2-L3: The degenerative disc disease at this level is mild to moderate, as was previously the case, and only slightly worsened from 2017. No significant spinal or foraminal stenosis. L3-L4: Degenerative disc height reduction and desiccation is moderate in severity and facet osteoarthritis is greater on the left than the right. There is no significant spinal stenosis but there is mild right and moderate left foraminal stenosis to the degree that impingement on the course of the left L3 nerve root may be present. L4-L5: At this disc level previously present degenerative changes have been present with a very small inferior endplate L4 Schmorl's node. The current examination shows significant progression of marrow space edema with reference to the 2017 comparison involving the L4 vertebral body inferiorly to a greater degree than the upper marrow space of L5, and edema within the disc space has also progressed. This is best seen on the sagittal STIR imaging (series 4 image 8) in the sagittal T1 imaging (series 3 image 9). There is a chronic disc protrusion at this level slightly greater on the right than the left resulting in asymmetric foraminal stenosis, near severe on the right and moderately severe on the left. Mild spinal stenosis. The edema pattern may represent a manifestation of early discitis/adjacent osteomyelitis. L5-S1: Degenerative disc height reduction and desiccation is moderately severe as was previously the case but without significant spinal or foraminal stenosis. IMPRESSION: 1. Progression of degenerative disc disease has developed along the lumbosacral spine with reference to the comparison MRI from 01/01/17. The degree of worsening is mild. 2. There is a significant change at the L4-5 disc level and adjacent vertebral body marrow space, where increased marrow space and disc edema is present. In this area in 2017 there has been a very small inferior endplate L4 Schmorl's node. At this time the degree of marrow edema is greater at the L4 level then the L5 level. The appearance does raise a degree of concern for potential development of discitis and adjacent osteomyelitis in this area. This information was called to the on-call orthopedic physician medical assistant who will convey this information to Dr. mansfield. Correlation for evidence of low-grade infection likely is warranted. 3. Spinal and foraminal stenosis is relatively mild in this patient and discussed in detail by level and the body of the report above. Dictated by: Herbert Carias M.D. on 04/09/2019 at 14:42 Approved by: Herbert Carias M.D. on 04/09/2019 at 14:58
== END ==
PROVIDERS: PCP Student in an Organized Health Care Education/Training Program; Visit Provider Physical Medicine & Rehabilitation Pain Medicine
DX: M54.5 Low back pain (principal); M51.37 Other intervertebral disc degeneration, lumbosacral region; M48.061 Spinal stenosis, lumbar region without neurogenic claudication
CPT/HCPCS: 72148

== ENCOUNTER → 2019-04-12 09:01 | Outpatient (CLI) | payer MEDICARE, OTHER, SELFPAY ==
[2017-11-24 12:11] VITALS: BMI 32.3
--- NOTE | 2019-04-12 | DI.MRI.S_ITS ---
PROCEDURE: MR LUMBAR SPINE W CON INDICATIONS: OTHER INTERVERTEBRAL DISC DISEASE TECHNIQUE: After the administration of contrast, sagittal and axial T1 spin echo with fat saturation through the lumbar spine. COMPARISON: [facility], MR, L-SPINE WITHOUT CONTRAST, 01/01/2017, 19:25. [facility], MR, MR LUMBAR SPINE WO CON, 04/09/2019, 13:27. FINDINGS: Image quality: Excellent. Alignment and curvature: There is normal bony alignment. Marrow: Reactive endplate change is noted adjacent to the L4-L5 disc. There is postcontrast enhancement associated with the reactive endplate changes adjacent to L4-L5 disc. No postcontrast enhancement identified within the L4-L5 intervertebral space. Small Schmorl's node noted in the inferior endplate of the L4 vertebral body which is stable compared to 01/01/17. Small subchondral cyst in the superior endplate of the L5 vertebral body is stable compared to 01/01/17. No acute vertebral body compression fractures. No suspicious marrow enhancement. Spinal cord: Conus medullaris terminates at the T12-L1 disc level. Visualized spinal cord demonstrates normal signal, without suspicious enhancement. Paraspinous soft tissues: No paravertebral masses or abnormal enhancement. IMPRESSION: 1. No evidence of L4-L5 discitis-osteomyelitis. 2. No paraspinous soft tissue inflammation or abscess. Dictated by: Kamini Mckenzie MD, PhD on 04/12/2019 at 15:28 Approved by: Kamini Mckenzie MD, PhD on 04/12/2019 at 15:33
[2019-04-12 09:59] LABS: Add Manual Diff / Slide Review NO; Basophils Absolute Auto 0 /uL (0-100); Basophils Percent Auto 0.7 % (0-2); Eosinophils Absolute Auto 200 /uL (0-450); Eosinophils Percent Auto 3.3 % (2-4); Hematocrit 47.9 % (41-53); Hemoglobin 16.3 g/dL (13.5-17.5); Lymphocytes Absolute Auto 2300 /uL (1100-4500); Lymphocytes Percent Auto 37.9 % (25-40); Mean Corpuscular HGB Conc 34.1 % (30-36); Monocytes Absolute Auto 600 /uL (0-900); Monocytes Percent Auto 9.2 % (3-14); Neutrophils Absolute Auto 3000 /uL (1500-7000); Neutrophils Percent Auto 48.9 % (50-75); Platelet Count 253 X10^3/uL (150-400); Red Blood Cell Count 5.44 X10^6/uL (4.5-5.9); Red Cell Distribution Width 13.1 % (11.6-14.8); White Blood Cell Count 6.1 X10^3/uL (4.5-11.0)
[2019-04-12 10:13] LABS: Erythrocyte Sedimentation Rate 6 MM/HR (0-15)
[2019-04-12 10:55] LABS: Blood Urea Nitrogen 26 mg/dL (9-20); Calcium 9.8 mg/dL (8.4-10.2); Carbon Dioxide 31 mmol/L (22-32); Chloride 101 mmol/L (98-107); Estimated Glomerular Filt Rate > 60.0 mL/min (>60); Glucose 121 mg/dL (80-110); HEMOLYSIS < 15 (0-50); Potassium 4.1 mmol/L (3.4-5.1); Sodium 142 mmol/L (137-145)
[2019-04-12 11:10] LABS: C-Reactive Protein Quant < 0.5 mg/dL (<1.0)
== END ==
PROVIDERS: PCP Student in an Organized Health Care Education/Training Program; Visit Provider Orthopaedic Surgery
DX: M51.26 Other intervertebral disc displacement, lumbar region (principal)
CPT/HCPCS: 36415; 72149; 80048; 82565; 84520; 85025; 85651; 86140

== ENCOUNTER → 2020-03-01 11:59 | Outpatient (CLI) | payer MEDICARE, OTHER, SELFPAY ==
[2017-11-24 12:11] VITALS: BMI 32.3
--- NOTE | 2020-03-01 | DI.RAD.S_ITS ---
PROCEDURE: XR SOFT TISSUE NECK INDICATIONS: NECK PAIN TECHNIQUE: 2 views of the neck were acquired. COMPARISON: None. FINDINGS: Airway: The airway appears patent. Soft tissues: Prevertebral soft tissues are normal in thickness. The epiglottis and aryepiglottic folds appear normal. No soft tissue gas. Bones: No suspicious bony lesions. Cervical spondylosis and facet arthropathy. Moderate narrowing of the C4-C5, C5-C6 disc spaces. Mild narrowing of the C6-C7 disc space. Straightening of the normal lordotic curvature. Scattered vascular calcifications seen in the aorta. . IMPRESSION: Normal appearance of the soft tissues as above. Carotid atherosclerosis. Cervical spondylosis as above. Facet arthropathy Dictated by: Alex Abraham M.D. on 03/01/2020 at 14:47 Approved by: Alex Abraham M.D. on 03/01/2020 at 14:50
== END ==
PROVIDERS: PCP Student in an Organized Health Care Education/Training Program; Referring Provider Student in an Organized Health Care Education/Training Program; Visit Provider Student in an Organized Health Care Education/Training Program
DX: M54.2 Cervicalgia (principal); M47.812 Spondylosis without myelopathy or radiculopathy, cervical region; I65.29 Occlusion and stenosis of unspecified carotid artery
CPT/HCPCS: 70360

== ENCOUNTER → 2020-03-15 09:08 | Outpatient (CLI) | payer MEDICARE, OTHER, SELFPAY ==
[2017-11-24 12:11] VITALS: BMI 32.3
--- NOTE | 2020-03-15 | DI.US.S_ITS ---
PROCEDURE: US CAROTID DOPPLER BI INDICATIONS: STENOSIS TECHNIQUE: Color and pulse Doppler interrogation was performed of both carotid systems, with image documentation and velocity measurements. COMPARISON: None. FINDINGS: Stenosis calculations are based on SRU (Society of Radiologists in Ultrasound) criteria. The flow velocities and the arterial waveforms are normal within both carotid arterial systems. Atherosclerotic plaque is seen on both sides. The estimated degree of internal carotid artery stenosis is less than 50%. Antegrade flow is confirmed within both vertebral arteries. IMPRESSION: No hemodynamically significant stenosis is seen. Atherosclerotic plaque is noted bilaterally. Dictated by: Dante Lynch M.D. on 03/15/2020 at 9:26 Approved by: Dante Lynch M.D. on 03/15/2020 at 9:27
== END ==
PROVIDERS: PCP Student in an Organized Health Care Education/Training Program; Referring Provider Student in an Organized Health Care Education/Training Program; Visit Provider Student in an Organized Health Care Education/Training Program
DX: I65.23 Occlusion and stenosis of bilateral carotid arteries (principal)
CPT/HCPCS: 93880

== ENCOUNTER → 2020-04-28 15:10 | Outpatient (CLI) | payer MEDICARE, OTHER, SELFPAY ==
[2017-11-24 12:11] VITALS: BMI 32.3
--- NOTE | 2020-04-28 | DI.RAD.S_ITS ---
PROCEDURE: XR FOOT RT 2V INDICATIONS: RT FOOT PAIN TECHNIQUE: 2 views of the foot were acquired. COMPARISON: None. FINDINGS: Bones: No fractures or dislocations. No suspicious bony lesions. Soft tissues: No tibiotalar joint effusion. Achilles tendon appears normal. IMPRESSION: No acute radiographic findings. If there is continued pain, followup exam or additional imaging such as MRI or CT could be performed for further assessment. Dictated by: Baylee Jimenez M.D. on 04/28/2020 at 16:06 Approved by: Baylee Jimenez M.D. on 04/28/2020 at 16:06
== END ==
PROVIDERS: PCP Student in an Organized Health Care Education/Training Program; Referring Provider Student in an Organized Health Care Education/Training Program; Visit Provider Student in an Organized Health Care Education/Training Program
DX: M79.671 Pain in right foot (principal)
CPT/HCPCS: 73620

== ENCOUNTER → 2021-04-25 11:37 | Outpatient (ROUT) | payer MEDICARE, OTHER, SELFPAY ==
[2017-11-24 12:11] VITALS: BMI 32.3
[2021-04-25 11:52] LABS: D Dimer 324 ng/mL (<230)
== END ==
PROVIDERS: PCP Student in an Organized Health Care Education/Training Program; Visit Provider Student in an Organized Health Care Education/Training Program
DX: R60.9 Edema, unspecified (principal); M79.671 Pain in right foot
CPT/HCPCS: 85379

== ENCOUNTER → 2021-04-30 08:00 | Outpatient (CLI) | payer MEDICARE, OTHER, SELFPAY ==
[2017-11-24 12:11] VITALS: BMI 32.3
--- NOTE | 2021-04-30 | DI.US.S_ITS ---
PROCEDURE: US PERIPH VENOUS LOW EXTREM BI INDICATIONS: ELEVATED D-DIMER TECHNIQUE: Real-time imaging, as well as color and pulse Doppler interrogation, were performed of the deep veins of both legs from the inguinal ligament to the popliteal fossa. COMPARISON: [facility], , PERIPH.LINDSEY EXT BILAT, 11/16/2015, 13:05. FINDINGS: Right: The common femoral, femoral and popliteal veins are normally compressible, and free of intraluminal thrombus. Color and pulse Doppler demonstrate normal phasic intravascular flow. There is normal augmentation response to distal compression maneuver. Left: The common femoral, femoral and popliteal veins are normally compressible, and free of intraluminal thrombus. Color and pulse Doppler demonstrate normal phasic intravascular flow. There is normal augmentation response to distal compression maneuver. IMPRESSION: Negative for deep venous thrombosis. Dictated by: Dante Lynch M.D. on 04/30/2021 at 9:03 Approved by: Dante Lynch M.D. on 04/30/2021 at 9:14
== END ==
PROVIDERS: PCP Student in an Organized Health Care Education/Training Program; Referring Provider Student in an Organized Health Care Education/Training Program; Visit Provider Student in an Organized Health Care Education/Training Program
DX: R79.89 Other specified abnormal findings of blood chemistry (principal)
CPT/HCPCS: 93970

== ENCOUNTER → 2022-08-30 11:35 | Outpatient (CLI) | payer MEDICARE, OTHER, SELFPAY ==
[2017-11-24 12:11] VITALS: BMI 32.3
--- NOTE | 2022-08-30 | DI.RAD.S_ITS ---
PROCEDURE: XR RIBS RT MIN 3V W CXR 1V INDICATIONS: Pleurodynia TECHNIQUE: 4 views of the right ribs were acquired, along with a single view chest. COMPARISON: None. FINDINGS: Surgical changes and devices: None. Bones and chest wall: No fractures or dislocations. No suspicious bony lesions. Overlying soft tissues appear unremarkable. Lungs and pleura: No pleural effusions or pneumothorax. Lungs appear clear. Mediastinum: Mediastinal contours appear normal. Heart size is normal. IMPRESSION: Normal for age, source of current right-sided chest/pleural pain symptoms is not seen. Dictated by: Herbert Carias M.D. on 08/30/2022 at 13:20 Approved by: Herbert Carias M.D. on 08/30/2022 at 13:21
--- NOTE | 2022-08-30 | DI.RAD.S_ITS ---
PROCEDURE: XR WRIST RT MIN 3V INDICATIONS: WRIST PAIN TECHNIQUE: A total of 4 views of the wrist were acquired. COMPARISON: None. FINDINGS: Bones: No fractures or dislocations. No suspicious bony lesions. Scaphoid view: No trauma Soft tissues: No suspicious soft tissue calcifications. IMPRESSION: No trauma. Source wrist pain is not seen. Dictated by: Herbert Carias M.D. on 08/30/2022 at 13:21 Approved by: Herbert Carias M.D. on 08/30/2022 at 13:21
== END ==
PROVIDERS: PCP Registered Nurse; Referring Provider Family Medicine; Visit Provider Family Medicine
DX: M25.531 Pain in right wrist (principal); R07.81 Pleurodynia
CPT/HCPCS: 71101; 73110

== ENCOUNTER → 2023-02-28 11:12 | Outpatient (CLI) | payer MEDICARE, OTHER, SELFPAY ==
[2017-11-24 12:11] VITALS: BMI 32.3
--- NOTE | 2023-02-28 | DI.RAD.S_ITS ---
PROCEDURE: XR WRIST RT MIN 3V INDICATIONS: Pain in right wrist TECHNIQUE: 4 views of the wrist were acquired. COMPARISON: [facility], CR, XR HAND RT MIN 3V, 02/28/2023, 11:22. [facility], CR, XR WRIST RT MIN 3V, 08/30/2022, 11:41. FINDINGS: Bones: No fractures or dislocations. No suspicious bony lesions. Scaphoid view: Intact Soft tissues: No suspicious soft tissue calcifications. IMPRESSION: No evidence acute bony abnormality. If clinical suspicion and/or symptoms persist, further assessment with repeat plain films, or advanced imaging (e.g., CT, MRI, or bone scan) may be helpful for further assessment. Dictated by: Jose Grant M.D. on 02/28/2023 at 11:59 Approved by: Jose Grant M.D. on 02/28/2023 at 12:03
--- NOTE | 2023-02-28 | DI.RAD.S_ITS ---
PROCEDURE: XR HAND RT MIN 3V INDICATIONS: Pain in right wrist TECHNIQUE: 3 views of the hand(s) acquired. COMPARISON: None. FINDINGS: Bones: No fractures or dislocations. Carpal bones are normally aligned. No suspicious bony lesions. DIP degenerative arthritis, relatively mild, involving the 2nd through 5th DIP joints. No bony abnormality identified at the wrist. Soft tissues: No suspicious soft tissue calcifications. IMPRESSION: Mild degenerative arthritis of the hand. No evidence acute bony abnormality. Dictated by: Jose Grant M.D. on 02/28/2023 at 11:57 Approved by: Jsoe Grant M.D. on 02/28/2023 at 11:59
== END ==
PROVIDERS: PCP Registered Nurse; Referring Provider Registered Nurse; Visit Provider Registered Nurse
DX: M19.041 Primary osteoarthritis, right hand (principal); M25.531 Pain in right wrist
CPT/HCPCS: 73110; 73130

== ENCOUNTER 2023-09-25 14:20 | Day surgery (SDC) | payer MEDICARE, OTHER, SELFPAY ==
[2017-11-24 12:11] VITALS: BMI 32.3
--- NOTE | 2023-09-25 14:53 | P.HP_ITS ---
History of Present Illness History of Present Illness Date Patient Seen: 09/25/23 Time Patient Seen: 14:53 Chief complaint: SDC Narrative: Calixto is a 73-year-old man with dysphagia. See office note from July for details. No changes since then. [facility] Medical History (Updated 08/19/23 @ 07:17 by Akua Duron) Pressure sore Abrasion Essential tremor Inguinal hernia Family History (System 08/19/23 @ 07:17 by Akua Duron) Sister Breast cancer Father History of heart artery stent Social History (System 08/19/23 @ 07:17 by Akua Duron) marital status: household members: spouse lives independently: Yes occupational status: previously employed Smoking Status: Never smoker alcohol intake: never substance use type: does not use Meds Home Medications and Allergies Home Medications Medication Instructions Recorded Confirmed Type omeprazole 10 mg capsule,delayed 10 mg PO DAILY ##0 11/06/17 06/14/22 History release acetaminophen 325 mg tablet 325 mg PO ONCE PRN 08/18/23 08/18/23 History (Tylenol) [id number]-vnm C-Mn 500 cap PO 08/18/23 08/18/23 History mg-400 mg capsule (Glucosamine-Chondroitin Max St) losartan 25 mg tablet 25 mg PO DAILY 08/18/23 08/18/23 History multivitamin 1 tab PO DAILY 08/18/23 08/18/23 History omeprazole 20 mg capsule,delayed 20 mg PO DAILY 08/18/23 08/18/23 History release Allergies Allergy/AdvReac Type Severity Reaction Status Date / Time [facility] AdvReac Uncoded 09/25/23 14:49 Exam Narrative Exam Narrative: Tremor Assessment & Plan Assessment and plan (1) Dysphagia: Qualifiers: Dysphagia type: unspecified Qualified Code(s): R13.10 - Dysphagia, unspecified Status: Acute Plan Proceed with esophagogastroduodenoscopy for dysphagia
[2023-09-25 14:59] VITALS: BP 172/112; PULSE 78; RESP 21; TEMP 36.1; O2SAT 96
[2023-09-25] MEDS: LACTATED RINGERS 1,000 ML 42 ML IV (15:07)
--- NOTE | 2023-09-25 16:35 | PM.PN.1 ---
Subjective Subjective Interval history: During preop assessment, pt describes chest tightness that comes on with exertion such as fast walking for half a mile and goes away quickly when he rests. He specifically denies chest pain and told me I don't have angina. Pt localizes his chest tightness to his anterior lower left sternal region. I asked if he'd seen a cargo handler, and he has not. Pt's GI sx are moderate. He has dysphagia but is able to swallow food because he always chews well. He sometimes has trouble swallowing horse pills but otherwise does okay. Exam Vital Signs (past 8 hours): - 09/25/23 14:59 Temperature 97 F L Pulse Rate 78 Respiratory Rate 21 Blood Pressure 172/112 H Pulse Oximetry 96 Oxygen Delivery Method Room Air Oxygen Delivery Method Room Air Objective ECG Impression: EKG obtained today shows normal EKG with NSR and no rhythm disturbances or ST changes at all. [facility] Medical History (Updated 09/25/23 @ 16:38 by Kalie Bradley DO) Pressure sore Abrasion Essential tremor Inguinal hernia Family History (System 08/19/23 @ 07:17 by Akua Duron) Sister Breast cancer Father History of heart artery stent Social History (System 08/19/23 @ 07:17 by Akua Duron) marital status: household members: spouse lives independently: Yes occupational status: previously employed Smoking Status: Never smoker alcohol intake: never substance use type: does not use Assessment & Plan Assessment & Plan narrative: 1. Dysphagia with EGD planned for today. 2. Chest tightness with exertion - concern for anginal chest pain. Discussed with pt and that his exertional chest tightness may be related GI symptoms or dyspnea from undiagnosed lung issues or cardiac. The first step is to rule out the most serious condition, possible cardiac disease. Pt is being referred to his PCP for further workup and a request for cardiac clearance prior to returning for EGD. Pt and voiced understanding and agreement with plan. Time Spent With Patient Time with patient: 30 to 49 minutes with 50% spent counseling/coordinating care
--- NOTE | 2023-09-25 16:43 | SUR.PREOP ---
Patient procedure cancelled due to concerns by anesthesia provider. Patient will reschedule pending Cardiac Clearance.
== END 2023-09-25 14:25 | disposition home or self-care (01) ==
LOC: ENDO 14:22
PROVIDERS: PCP Registered Nurse; Referring Provider Surgery; Visit Provider Surgery
DX: R13.10 Dysphagia, unspecified (principal); Z53.09 Procedure and treatment not carried out because of other contraindication; R07.89 Other chest pain
CPT/HCPCS: 93005; 93010; J2704

== ENCOUNTER → 2024-04-28 15:36 | Outpatient (CLI) | payer MEDICARE, OTHER, SELFPAY ==
[2017-11-24 12:11] VITALS: BMI 32.3
--- NOTE | 2024-04-28 15:37 | DI.US.S_ITS ---
PROCEDURE: US PERIPH VENOUS LOW EXTREM LT INDICATIONS: FOOT SWELLING TECHNIQUE: Real-time imaging, as well as color and pulse Doppler interrogation, were performed of the lower extremity deep veins from the inguinal ligament to the popliteal fossa, with documentation of the visualized calf veins. COMPARISON: None. FINDINGS: The common femoral, femoral, popliteal, and the visualized calf veins are normally compressible, and free of intraluminal thrombus. Color and pulse Doppler demonstrate normal phasic intraluminal flow. There is normal augmentation response to distal compression maneuver. IMPRESSION: No findings of lower extremity deep venous thrombosis. Dictated by: Greer Tsang M.D. on 04/28/2024 at 16:34 Approved by: Greer Tsang M.D. on 04/28/2024 at 16:34
== END ==
PROVIDERS: PCP Registered Nurse; Referring Provider Nurse Practitioner Family; Visit Provider Nurse Practitioner Family
DX: M79.89 Other specified soft tissue disorders (principal)
CPT/HCPCS: 93971

== ENCOUNTER → 2024-06-30 09:59 | Outpatient (CLI) | payer MEDICARE, OTHER, SELFPAY ==
[2017-11-24 12:11] VITALS: BMI 32.3
== END ==
PROVIDERS: PCP Registered Nurse; Referring Provider Family Medicine; Visit Provider Surgery
DX: I87.322 Chronic venous hypertension (idiopathic) with inflammation of left lower extremity (principal); I83.892 Varicose veins of left lower extremity with other complications; R60.0 Localized edema
CPT/HCPCS: 99203; 99212

== ENCOUNTER → 2024-07-10 11:50 | Outpatient (CLI) | payer MEDICARE, OTHER, SELFPAY ==
[2017-11-24 12:11] VITALS: BMI 32.3
== END ==
PROVIDERS: PCP Registered Nurse; Visit Provider Physician Assistant Medical
DX: L30.9 Dermatitis, unspecified (principal)
CPT/HCPCS: 87070; 87075; 87205

== ENCOUNTER → 2024-07-19 11:50 | Outpatient (CLI) | payer MEDICARE, OTHER, SELFPAY ==
[2017-11-24 12:11] VITALS: BMI 32.3
--- NOTE | 2024-07-19 11:51 | DI.US.S_ITS ---
PROCEDURE: US VENOUS INSUFFICIENCY BILAT INDICATIONS: eval reflux TECHNIQUE: Real time scanning was performed of the lower extremity venous system, with imaging documentation, as well as Color and pulse Doppler interrogation. COMPARISON: None. FINDINGS: RIGHT LOWER EXTREMITY: The deep veins are normally compressible, and free of intraluminal thrombus. Color and pulse Doppler demonstrate reflux in the common femoral vein and popliteal vein. There is normal augmentation with distal compression maneuver. Greater saphenous vein (GSV): Normally 4 mm or less in diameter, with any reflux less than 0.5 seconds. Saphenofemoral junction (SFJ): 5 mm. Prolonged, 2.7 second reflux. Proximal GSV: 9 mm. Prolonged, 3.0 second reflux. Mid GSV: 5 mm. Mild, 0.7 seconds reflux. Distal GSV: 5 mm. Mild, 0.8 second reflux. Calf GSV: 4 mm, no reflux Anterior accessory GSV (AAGSV): Anatomic variant present without significant reflux. Small saphenous vein (SSV): Posterior calf, draining into popliteal vein. Posterior calf: [address] Street Sprinkler veins: Calf: There is a 3 mm calf varicosity with reflux measuring 0.7 seconds LEFT LOWER EXTREMITY: The deep veins are normally compressible, and free of intraluminal thrombus. Color and pulse Doppler demonstrate reflux in the common femoral vein. There is normal augmentation with distal compression maneuver. Greater saphenous vein (GSV): Normally 4 mm or less in diameter, with any reflux less than 0.5 seconds. Saphenofemoral junction (SFJ): 6 mm. Prolonged, 2.9 seconds reflux. Proximal GSV: 3 mm. Borderline, 0.5 second reflux. Mid GSV: 3 mm. Borderline, 0.5 second reflux. Distal GSV: 3 mm. Mild, 0.7 second reflux. Calf GSV: 6 mm. Mild, 0.7 second reflux. Anterior accessory GSV (AAGSV): Anatomic variant not present across anterior thigh. Small saphenous vein (SSV): Posterior calf, draining into popliteal vein. Posterior calf: 3 mm. Mild, 0.6 seconds reflux. Vein of Giacomini (posterior thigh connection between GSV and SSV): Anatomic variant not seen. Street Sprinkler veins: Calf: Calf rn cardiac cath measuring 4 mm, with 0.5 seconds of reflux. IMPRESSION: 1. There is bilateral deep system reflux, involving the common femoral vein and popliteal vein on the right and common femoral vein on the left. 2. Bilateral greater saphenous vein prolonged reflux as described above. Dictated by: Jose Grant M.D. on 07/20/2024 at 18:28 Approved by: Jose Grant M.D. on 07/20/2024 at 18:34
== END ==
PROVIDERS: PCP Registered Nurse; Referring Provider Surgery; Visit Provider Surgery
DX: I87.321 Chronic venous hypertension (idiopathic) with inflammation of right lower extremity (principal); I87.2 Venous insufficiency (chronic) (peripheral)
CPT/HCPCS: 93970

== ENCOUNTER → 2024-07-20 11:50 | Outpatient (CLI) | payer MEDICARE, OTHER, SELFPAY ==
[2017-11-24 12:11] VITALS: BMI 32.3
== END ==
PROVIDERS: PCP Registered Nurse; Referring Provider Family Medicine; Visit Provider Surgery
DX: I87.2 Venous insufficiency (chronic) (peripheral) (principal)
CPT/HCPCS: 99211; 99213